=== PATIENT | female | born 1995 | race Two or more races ===

== ENCOUNTER → 2019-01-16 16:05 | Outpatient (CLI) | payer MEDICAID ==
[2012-11-10 09:07] VITALS: BMI 25.9
[2019-01-16 17:13] LABS: APPEARANCE HAZY (CLEAR); BILIRUBIN NEGATIVE (NEGATIVE); COLOR YELLOW (YELLOW); GLUCOSE NEGATIVE (NEGATIVE); KETONE NEGATIVE (NEGATIVE); NITRITE NEGATIVE (NEGATIVE); PROTEIN NEGATIVE (NEGATIVE); SPECIFIC GRAVITY 1.005 (1.005-1.020); UROBILINOGEN NORMAL (NORMAL)
== END | disposition home or self-care (01) ==
LOC: D.LDO 16:05
PROVIDERS: ATTEND Obstetrics & Gynecology
DX: O26.892 Other specified pregnancy related conditions, second trimester (principal); Z3A.24 24 weeks gestation of pregnancy

== ENCOUNTER → 2019-04-10 11:56 | Outpatient (CLI) | payer MEDICAID ==
[2012-11-10 09:07] VITALS: BMI 25.9
[2019-04-12 19:30] VITALS: BMI 35.3
== END | disposition home or self-care (01) ==
LOC: D.LDO 11:56
PROVIDERS: ATTEND Obstetrics & Gynecology
DX: O26.859 Spotting complicating pregnancy, unspecified trimester (principal); Z3A.00 Weeks of gestation of pregnancy not specified

== ENCOUNTER 2019-04-12 13:21 | Inpatient (IN) | payer MEDICAID ==
[~2019-04-12] VITALS: Ht 170.2 cm; Wt 102.3 kg
[2019-04-12 14:06] LABS: HEMATOCRIT 39.4 % (36.0-48.0); HEMOGLOBIN 13.3 g/dL (12-16); MCH 29.6 pg (26.0-34.0); MCHC 33.8 g/dL (31.0-37.0); MCV 87.8 fL (80.0-100.0); RBC 4.49 10x6/uL (4.00-5.40); RDW 13.1 % (11.5-14.5); WBC 9.5 10x3/uL (4.8-10.8)
--- NOTE | 2019-04-12 19:00 | NUR ---
REPORT RECEIVED FROM THEE LOZANO.
[2019-04-12 19:30] VITALS: BP 122/70; Ht 170.2 cm; Wt 102.3 kg
[2019-04-12 19:31] VITALS: BP 122/70
--- NOTE | 2019-04-12 19:31 | NUR ---
PATIENT SITTING UP IN BED. AT BEDSIDE. ADMISSION HISTORY AND ADMISSION ASSESSMENT DONE AT THIS TIME. VS DONE. PATIENT DENIES PAIN AT THIS TIME. RESPIRATIONS AT EASE. LUNG SOUNDS CLEAR IN ALL [place]. HEART REGULAR RATE AND RHYTHM. ABDOMEN SOFT, NON TENDER. BOWEL SOUNDS PRESENT IN ALL QUADRANTS. FUNDUS FIRM, 1 BELOW UMBILICUS, MIDLINE. SMALL AMOUNT OF LOCHIA NOTED TO LUIS MANUEL PAD. NO EDEMA NOTED TO EXTREMITIES. PATIENT DENIES ANY NEEDS AT THIS TIME. BED IN LOWEST POSITION, SIDE RAILS UP X 2, C/L AND WATER WITHIN REACH.
--- NOTE | 2019-04-12 21:00 | NUR ---
PATIENT SITTING UP IN BED. STATES SHE HAS AMBULATED TO BATHROOM X 2 AND VOIDED LARGE AMOUNT. PATIENT TRANSFERRED TO ROOM 1274. AMBULATED IN HALLWAY TO ROOM WITH STEADY GAIT. DENIES ANY DIZZINESS. PATIENT ORIENTED TO ROOM AND CALL SYSTEM. DENIES ANY NEEDS OR CONCERNS. BED IN LOWEST POSITION, SIDE RAILS UP X 2, C/L AND WATER WITHIN REACH.
--- NOTE | 2019-04-12 22:00 | NUR ---
PATIENT SITTING UP IN BED ATTEMPTING TO BREASTFEED . INFANT UNWRAPPED AND LYING AGAINST MOTHER. ATTEMPTED TO STIMULATE INFANT WITHOUT SUCCESS. MOTHER ATTEMPTED TO BREASTFEED WITH ASSISTANCE FROM THIS RN X 20 MINUTES WITH NO SUCCESS. MOTHER EDUCATED ON POSITIONING, LATCH, AND STIMULATION. WILL ATTEMPT AGAIN IN 30 MINUTES. MOTHER INSTRUCTED TO CALL FOR ASSISTANCE IF UNABLE TO GET INFANT TO BREASTFEED. MOTHER VERBALIZED UNDERSTANDING. DENIES ANY FURTHER NEEDS.
--- NOTE | 2019-04-12 23:24 | NUR ---
PATIENT SITTING UP IN BED INFANT. PROPER LATCH, SUCK, AND SWALLOW NOTED. PATIENT DENIES ANY NEEDS. BED IN LOWEST POSITION, SIDE RAILS UP X 2, C/L AND WATER WITHIN REACH.
--- NOTE | 2019-04-13 01:03 | NUR ---
PATIENT LYING IN BED. IN OPEN CRIB AT BEDSIDE. PATIENT DENIES ANY PAIN. DENIES ANY NEEDS. BED IN LOWEST POSITION, SIDE RAILS UP X 2, C/L AND WATER WITHIN REACH.
--- NOTE | 2019-04-13 02:53 | NUR ---
PATIENT SITTING UP IN BED. STATES PAIN 3 OUT OF 10. SCHEDULED TYLENOL 1000 MG ADMINISTERED PO. PATIENT DENIES FURTHER NEEDS. BED IN LOWEST POSITION, SIDE RAILS UP X 2, C/L AND WATER WITHIN REACH.
[2019-04-13 05:01] VITALS: BP 122/75
--- NOTE | 2019-04-13 05:01 | NUR ---
PATIENT SITTING UP IN BED HOLDING INFANT. DENIES PAIN. VITAL SIGNS DONE AT THIS TIME. PATIENT DENIES ANY FURTHER NEEDS. BED IN LOWEST POSITION, SIDE RAILS UP X 2, C/L AND WATER WITHIN REACH.
--- NOTE | 2019-04-13 06:22 | NUR ---
PATIENT AMBULATING IN ROOM HOLDING . DENIES ANY NEEDS AT THIS TIME. NO SIGNS OF DISTRESS NOTED. BED IN LOWEST POSITION, SIDE RAILS UP X 2, C/L AND WATER WITHIN REACH.
[2019-04-13 08:11] LABS: RAPID PLASMA REAGIN Non Reactive (Non Reactive)
--- NOTE | 2019-04-13 08:30 | NUR ---
AM ASSESSMENT CHARTED ON FLOWSHEET. PT RATE PAIN/DISCOMFORT 2/10 SCHEDULED TYLENOL GIVEN. FUNDUS FIRM AT U/U, LIGHT BLEEDING NOTED TO LUIS MANUEL PAD. PT DOES QUESTIONS WHEN SHE AND MIGHT BE DISCHARGED, EXPLAINED DUE TO UNKNOWN GBS WOULD STAY 48 HOURS POST DELIVERY, BOTH PT AND SPOUSE STATE THEIR UNDERSTANDING. SALINE LOCK TO RIGHT WRIST REMOVED WITH CATH INTACT, THIS WAS DONE PER PT REQUEST. IN CRIB AT BEDSIDE, SIDE RAILS UP X 2 WITH CALL LIGHT IS WITH IN REACH.
--- NOTE | 2019-04-13 09:39 | NUR ---
Fernanda Clay 04/13/19 LE@ 9:00 S: Patient states is going fine. This is her second baby . She has tried different position. States she just fed infant about 8:30. States she thought she was only supposed to feed baby for 10 minutes. States she can feed baby again. Thanked CLC for helping with latching and education. She doesn't get [facility] but would like to sign up today. O: Patient sitting up in bed changing infant. Observed feeding cues and showed/explained what feeding cues mean. Infant was latched to the left breast in football hold at 8:50-9:05. had round checks, mouth 140 degrees, sucking in a rocking motion, and observed infant removing milk from the breast. Both mother an infant appear content at the breast, no discomfort expressed. Patient nipples shows no signs of redness or trauma. Informed patient takes time, practice, and patience in the beginning. Both mother and are learning together how to . Every is different and there need for eating can vary. Latching will help with establishing your milk supply, so every feeding is very important. Explained infant feeding cues, normal feeding patterns (every 2-3 hours in the day 3-4 hours at night or soon, as needed per infant demands) breastmilk composition, how to verify is latched correctly, supply and demand, and the importance of skin to skin to help with led feeding. Encouraged to ask for help as needed with latching or any other questions or concerns with from nursery staff. [facility] appointment was made for patient while CLC was in room. A: Patient expresses no concern with . P: Continue to promote during hospital visit. Please address all questions and concerns regarding to nursery staff. Vickie Prieto, JOE
--- NOTE | 2019-04-13 10:54 | NUR ---
PT SITTING UP IN BED VISITING WITH FAMILY/FRIENDS. CONTINUE TO DENY PAIN OR DISCOMFORT.
--- NOTE | 2019-04-13 13:08 | NUR ---
pt amb in halls with spouse and in carrier. rates pain at 2/10 and denies needs at this time.
--- NOTE | 2019-04-13 16:45 | NUR ---
verbal report to Braydon Gleason RN who will be taking over care of pt.
--- NOTE | 2019-04-13 17:00 | NUR ---
PT TRANSFERRED VIA AMB, GAIT STEADY, TO [facility] ROOM 1222 WITH ALL BELONGINGS, INFANT TO NSY AT THIS TIME, PT ORIENTED TO ROOM, BED IN LOW POSITION, SIDE RAILS X 2, CALL LIGHT IN REACH
--- NOTE | 2019-04-13 17:20 | NUR ---
INFANT TO ROOM VIA OPEN CRIB CART PER THIS RN, BANDS CHECK, PT DENIES NEEDS OR PAIN AT THIS TIME
--- NOTE | 2019-04-13 18:43 | NUR ---
PT UP IN ROOM, DENIES NEEDS OR PAIN AT THIS TIME, IN OPEN CRIB CART
--- NOTE | 2019-04-13 19:22 | NUR ---
BEDSIDE REPORT RECEIVED FROM OFF GOING DAYSHIFT NURSE PIA TOBIAS RN.
[2019-04-13 19:35] VITALS: BP 120/79
--- NOTE | 2019-04-13 19:35 | NUR ---
PT RESTING IN BED HOLDING . VSS. PT C/O BACK AND PERINEAL PAIN. DISCUSSED PAIN MANAGEMENT. WILL PROVIDE TORADOL PER MD ORDER. INSTRUCTED PT TO NOTIFY NURSE WITH ANY OTHER PROBLEMS, NEEDS, OR CONCERNS, VERBALIZED UNDERSTANDING.
--- NOTE | 2019-04-13 19:53 | NUR ---
TORADOL 10MG PO GIVEN FOR C/O BACK AND PERINEAL PAIN. INSTRUCTED PT TO NOTIFY NURSE IF MEDICATION NOT EFFECTIVE. VERBALIZED UNDERSTANDING.
--- NOTE | 2019-04-13 19:55 | NUR ---
PT RESTING IN BED HOLDING . ASSESSMENT COMPLETE PER FLOWSHEET. BBS CLEAR. ABDOMEN SOFT. FUNDUS FIRM AND 2 BELOW UMBILICUS. SMALL AMOUNT OF LOCHIA NOTED ON PERIPAD. PT REPORTS THAT SHE IS PASSING GAS AND HAD A BM TODAY. PT DENIES ANY COMPLAINTS WITH VOIDING. TRACE EDEMA NOTED TO BLE. POC DISCUSSED. QUESTIONS ANSWERED. DISCUSSED WITH PT ABOUT THE IMPORTANCE OF KEEPING KEEPING SR UP X2 AND PLACING IN CRIB IF SHE IS GOING TO GO TO SLEEP. INSTRUCTED PT TO NOTIFY NURSE WITH ANY PROBLEMS, NEEDS, OR CONCERNS. VERBALIZED UNDERSTANDING. BED IN LOW POSITION. SR UP X2. CALL LIGHT WITHIN PTS REACH.
--- NOTE | 2019-04-13 20:30 | NUR ---
CHECKED IN WITH MOM. SHE IS DOING WELL AND STATES THAT SHE HAS NO PAIN. SHE HAS NO NEEDS AT THIS TIME. PT WAS ASKED TO CALL IF SHE NEEDED ANYTHING.
--- NOTE | 2019-04-13 21:15 | NUR ---
PT WALKING AROUND IN ROOM. NO C/O AT THIS TIME FOB IS HOLDING THE BABY. PT ASKED TO CALL WITH ANY NEEDS.
--- NOTE | 2019-04-13 22:05 | NUR ---
PT IS IN BED WATCHING TV. SHE STATES SHE HAS NO PAIN. FUNDUS FIRM AND SMALL AMT LOCHIA.
--- NOTE | 2019-04-13 23:30 | NUR ---
NURSERY NURSE IN WITH PT AND BABY. NO NEW C/O AND NO NEEDS.
--- NOTE | 2019-04-14 00:15 | NUR ---
PT IS RESTING WELL AT THIS TIME. NO C/O NOTED.
--- NOTE | 2019-04-14 02:14 | NUR ---
PT RESTING WITHOUT C/O. BABY IN ROOM WELL FOB.
--- NOTE | 2019-04-14 04:05 | NUR ---
PT IS AWAKE FROM BABY CRYING. FOB IS CHANGING A DIAPER. PT STATES NO PAIN.
--- NOTE | 2019-04-14 06:00 | NUR ---
PT IS AWAKE AT THIS TIME. THE BABY HAS BEEN CRYING. FOB WITH BABY NOW. NO C/O OF PAIN OR DISCOMFORT.
[2019-04-14 07:42] VITALS: BP 113/75
--- NOTE | 2019-04-14 07:49 | NUR ---
ASSESSMENT DONE. AWAKE AND ALERT. STATES NOT SLEEPING WELL AND IS READY TO GO HOME. DENIES NEEDS. BABY IN ARMS. STATES THAT BLEEDING HAS BEEN LIGHT.
--- NOTE | 2019-04-14 08:46 | NUR ---
DR CAMPBELL HERE TO SEE PT.
--- NOTE | 2019-04-14 09:46 | NUR ---
TDAP NOT RECOMMENDED ON VACCINE WEB SITE. PT SATES SHE DOES WANT FLU SHOT.
[2019-04-14] MEDS ORDERED: TYLENOL W/CODEI1 TAB PO (11:20)
--- NOTE | 2019-04-14 12:17 | NUR ---
DISCHARGE INST VERBAL AND WRITTEN GIVEN. SCRIPT FOR TYLENOL#3 GIVEN ALONG WITH PT MED REC AND DRUG DATA SHEET. PFW POST INSTRUCTION. SEE ALSO SIGN INST SHEET. AWHONN WARNING SIGNS SHEET GIVEN. PT HEALTH SUMMARY GIVEN. PT DENIES QUESTIONS.
--- NOTE | 2019-04-14 15:30 | NUR ---
STATES SHE IS READY TO GO HOME. DISCHARGED HOME WITH . TO AUTO VIA W/C.
--- NOTE | 2019-04-14 16:07 | NUR ---
1400 UP AND ABOUT IN ROOM- DENIES NEEDS. NO REQUESTS.
== END 2019-04-14 15:30 | disposition home or self-care (01) | DRG 807 ==
LOC: D.LD 13:21 → D.WS 04-13 17:00
PROVIDERS: ADMIT Obstetrics & Gynecology; ATTEND Obstetrics & Gynecology
PROC: 10E0XZZ Delivery of Products of Conception, External Approach (ICD-10-PCS; principal; 2019-04-13)
DX: O80 Encounter for full-term uncomplicated delivery (principal); Z37.0 Single live birth; Z3A.37 37 weeks gestation of pregnancy